=== PATIENT | male | born 1945 | race Caucasian/White ===

== ENCOUNTER 2017-04-07 09:56 | Observation (INO) | payer OTHER ==
--- NOTE | 2017-04-06 17:41 | GHP ---
[f rep st] PREOP HISTORY AND PHYSICAL ADMISSION DIAGNOSIS: BPH with urinary obstruction. HISTORY OF PRESENT ILLNESS: By history, this is a 71-year-old gentleman who has had urinary obstruct ion. He is admitted for a TURP. He says that he stands sometimes for 30 seconds before could start voiding and he has tried medications without help. He has had a previous photovaporization of the pr ostate and voided well until the past few weeks. He tried a course of VESIcare without resolving of symptoms. He had a transrectal ultrasound of the prostate that showed about a 51.7 g prostate with some calculi in the parenchyma of the prostate. He had a urodynamic study on 03/21/2017 that showed he had a hig h pressure voiding with normal EMG and low flow rate. That showed that he was obstructed. He had a peak flow of 9.8 mL/sec, average flow 4.5 mL/sec. He voided 198 mL with a postvoid residual of 17. He had a cystoscopy and the cystoscopy showed he had residual adenoma. He has had an idiopathic detr usor overactivity, bladder outlet obstruction, small capacity bladder, high detrusor voiding pressure s. At the present time, he is admitted for a TURP. Options discussed. Indications, complications discu ssed. Written and verbal consent were obtained. PAST MEDICAL HISTORY: He has had essential tremor, hypercholesterolemia, elevated PSAs past surgery, appendectomy, photovaporization of the prostate. TRUS with biopsy was benign. MEDICATIONS: Carbidopa/Levopa, Flomax, Lamictal, Lipitor, Seroquel. ALLERGIES: None. SOCIAL HISTORY: Former smoker. Nondrinker. and immunizations up to date. REVIEW OF SYSTEMS: Negative cardiac, respiratory, GI, and endocrine. PHYSICAL EXAMINATION: VITAL SIGNS: Stable. CHEST: Clear. HEART: Regular rate and rhythm. ABDOM EN: No organomegaly, rebound, or guarding. EXTREMITIES: Lower extremities are normal. At the present time, he is admitted for the TURP. Copy requested to: Dr. José Atkins /[id number]/MODL
--- NOTE | 2017-04-07 08:39 | PDHPUP ---
History & Physical Update H&P update statement: This history and physical update is based on an assessment of the patient which was completed after admission or registration (within 24 hours), but prior to the surgery/procedure. H&P update: H&P reviewed & patient examined, no change in patient's condition since H&P completed
[~2017-04-07 09:56] MED LIST: ceFAZolin 2 GM/SWFI 2 GM/20 ML SYR IVP ONE
[2017-04-07] MEDS ORDERED: LR 1,000 ML IV ONE (10:14)
[2017-04-07] MEDS ORDERED: LIDOCAINE 1% 2 ML INJ ID PRN (10:14)
[2017-04-07] MEDS ORDERED: LIDOCAINE 2% JELLY 20 ML (UROJECT) ONE (10:43)
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
[2017-04-07] MEDS ORDERED: MIDAZOLAM 2 MG/2 ML VIAL ONE (10:55)
[2017-04-07] MEDS ORDERED: PROPOFOL 200 MG/20 ML VIAL ONE (10:56)
[2017-04-07] MEDS ORDERED: fentaNYL 100 MCG/2 ML INJ ONE ×3 (10:56→15:08)
[2017-04-07] MEDS ORDERED: ONDANSETRON 4 MG/2 ML VIAL ONE (10:58)
[2017-04-07] MEDS ORDERED: METOCLOPRAMIDE 10 MG/2 ML VIAL ONE (10:58)
[2017-04-07] MEDS ORDERED: PHENYLEPHRINE HCL 100 MCG/ML SYR ONE (11:53)
[2017-04-07] MEDS ORDERED: OXYCODONE/APAP 5/325 TAB PO PRN (12:10)
[2017-04-07] MEDS ORDERED: ACETAMINOPHEN 325 MG TAB PO PRN (12:10)
[2017-04-07] MEDS ORDERED: ZOLPIDEM TARTRATE 5 MG TAB PO PRN (12:10)
[2017-04-07] MEDS ORDERED: ONDANSETRON 4 MG/2 ML VIAL IVP PRN ×2 (12:10→12:11)
[2017-04-07] MEDS ORDERED: OPIUM/BELLADONNA ALKALO SUPP PR PRN (12:10)
[2017-04-07] MEDS ORDERED: ONDANSETRON DISINTEGRATING 4 MG TAB PO PRN (12:10)
[2017-04-07] MEDS ORDERED: NALOXONE HCL 0.4 MG/ML INJ IVP PRN (12:11)
[2017-04-07] MEDS ORDERED: PROMETHAZINE HCL 25 MG/ML INJ IVP PRN (12:11)
[2017-04-07] MEDS ORDERED: LR 500 ML IV PRN (12:11)
--- NOTE | 2017-04-07 12:12 | POSTANESTH ---
Post Anesthetic Evaluation Cardiovascular Status: Normal, Stable Respiratory Status: Normal, Stable Level of Consciousness/Mental Status: Can Participate in Eval Pain Control: Adequate, Prn Tx Ordered Nausea/Vomiting Control: Adequate, Prn Tx Ordered Complications Possibly Related to Anesthesia: None Noted
--- NOTE | 2017-04-07 12:14 | GOP ---
[f rep st] OPERATIVE REPORT DATE OF OPERATION: 04/07/2017 SURGEON: Pablo Sanchez MD PREOPERATIVE DIAGNOSIS: Benign prostatic hypertrophy, urinary obstruction. POSTOPERATIVE DIAGNOSIS: Benign prostatic hypertrophy, urinary obstruction. PROCEDURE PERFORMED: Transurethral resection of the prostate. FINDINGS: DESCRIPTION OF PROCEDURE: This gentleman underwent general anesthesia, prepped and draped in the nor mal sterile fashion in dorsal lithotomy position. After an appropriate time-out, a scope was passed u nder direct vision into the bladder. He had regrowth of nodular prostatic hypertrophy and TUR of the prostate was started by taking down the right lateral lobe, the right portion of the posterior lobe. Hemostasis via cauterization. Left lateral lobe and left portion of the posterior lobe resected. Bl adder was Ellik'd free of all chips and clots. Visualization revealed no residual chips or clots. U reteral orifices preserved. External sphincter approximated at the midline symmetrically. [place] num was clear and Uro-jet placed into urethra. A 22 three-way catheter was passed over a Mandarin gu stacey. 60 cc balloon inflated. No traction placed and he will be admitted for postoperative care. Kalen blake sent to Pathology. Estimated blood loss, minimal. Complications, none. Dr. Stovall provided neral anesthesia. /[id number]/MODL
--- NOTE | 2017-04-07 12:15 | POSTOPPROG ---
Post Op Note Date of Operation: 04/07/17 Surgeon: Pablo Sanchez Anesthesia: LMA Pre-op Diagnosis: bph Procedure: turp Inf/Abcess present in the surg proc area at time of surgery?: No EBL: Minimal Drains: Other (bagley) Specimen(s): stent, dictated
[2017-04-07] MEDS ORDERED: POTASSIUM Cl (KCl) 10 MEQ in D5W 1/2 NS 1,000 ML IV SCH (12:30)
[2017-04-07] MEDS: fentaNYL 100 MCG/2 ML INJ IVP PRN ×3 (12:59→15:11)
[2017-04-07] MEDS ORDERED: PHENAZOPYRIDINE HCL 200 MG TAB PO ONE (13:00)
[2017-04-07] MEDS ORDERED: OPIUM/BELLADONNA ALKALO SUPP PR ONE (13:04)
[2017-04-07] MEDS: HYDROCODONE/APAP 5/325 TAB PO PRN ×2 (16:28→20:36)
--- NOTE | 2017-04-08 07:57 | SOAPPROG ---
SOAP Progress Note Assessment/Plan: Assessment: BPH loc w urin obs/LUTS Acute POD # 1, dc bagley and plan dc home Plan: dc home if pt voids and follow up in 3 weeks 04/08/17 07:56 Subjective: no complaints Objective: Vital Signs Temp Pulse Resp BP Pulse Ox 36.8 C 59 L 16 140/80 H 93 04/08/17 04:23 04/08/17 04:23 04/08/17 04:23 04/08/17 04:23 04/08/17 04:23 Laboratory Results 04/07/17 10:30 04/07/17 04/08/17 04/09/17 05:59 05:59 05:59 Intake Total 2550 Output Total 6191 0850 Balance -3733 -1550 Physical Exam - Physical Exam General Appearance: WD/WN Neck: supple Respiratory: No respiratory distress Cardiac/Chest: regular rate, rhythm Abdomen: soft Back: No CVA tenderness Extremities: No calf tenderness Neuro/Psych: alert, oriented x 3 ICD10 Worksheet Patient Problems: Problems Problem Status Onset BPH loc w urin obs/LUTS Acute - ICD10 Problem Qualifiers (1) BPH loc w urin obs/LUTS
--- NOTE | 2017-04-08 08:13 | GDS ---
[f rep st] DISCHARGE SUMMARY ADMISSION DIAGNOSIS: Benign prostatic hypertrophy, with urinary obstruction. DISCHARGE DIAGNOSIS: Benign prostatic hypertrophy, with urinary obstruction. Pathology pending. HOSPITAL COURSE: This gentleman on the day of admission had the above procedure performed. He was d ischarged home on postop day 1. He will have followup with me in 3 weeks. COMPLICATIONS DURING HOSPITALIZATION: None. /[id number]/MODL
[2017-04-08] MEDS ORDERED: lamoTRIgine 100 MG TAB PO SCH ×2 (09:00→17:00)
[2017-04-08] MEDS ORDERED: CYANO/VITAMIN B12 100 MCG TAB PO SCH (09:00)
[2017-04-08] MEDS ORDERED: PROPRANOLOL HCL 120 MG PO SCH (09:00)
[2017-04-08] MEDS ORDERED: HYDROCHLOROTHIAZIDE 12.5 MG CAP PO SCH ×2 (09:00→17:00)
[2017-04-08] MEDS ORDERED: CYANOCOBALAMIN 100 MCG PO SCH (09:00)
[2017-04-08] MEDS ORDERED: PROPRANOLOL HCL 40 MG TAB PO SCH (09:00)
[2017-04-08] MEDS ORDERED: LAMOTRIGINE 200 MG PO SCH (09:00)
[2017-04-08] MEDS: CARBIDOPA/LEVODOPA 25 MG/100 MG TAB PO SCH ×2 (09:03→13:07)
[2017-04-08 10:26] VITALS: BP 136/82; PULSE 68; RESP 18; TEMP 98; O2SAT 91
[2017-04-08] MEDS ORDERED: LAMOTRIGINE 100 MG PO SCH (17:00)
[2017-04-08] MEDS ORDERED: ATORVASTATIN CALCIUM 20 MG TAB PO SCH (17:00)
[2017-04-08] MEDS ORDERED: NON-FORMULARY NEW DRUG (Atorvastatin Calcium [Lipitor 20 Mg (*)] 20 MG) PO SCH (17:00)
[2017-04-08] MEDS ORDERED: DIOVAN HCT PO SCH (17:00)
[2017-04-08] MEDS ORDERED: VALSARTAN 160 MG TAB PO SCH (17:00)
[2017-04-08] MEDS ORDERED: QUEtiapine FUMARATE 25 MG TAB PO SCH (21:00)
[2017-04-08] MEDS ORDERED: QUETIAPINE FUMARATE 25 MG PO SCH (21:00)
== END 2017-04-08 13:23 | disposition home or self-care (01) ==
LOC: F1N 09:56
PROVIDERS: ADMIT Specialist; ATTEND Specialist
PROC: 0VB08ZZ Excision of Prostate, Via Natural or Artificial Opening Endoscopic (ICD-10-PCS; principal; 2017-04-07 11:30)
DX: C61 Malignant neoplasm of prostate (principal); N40.1 Benign prostatic hyperplasia with lower urinary tract symptoms; N13.8 Other obstructive and reflux uropathy; R33.9 Retention of urine, unspecified; R39.11 Hesitancy of micturition; R39.15 Urgency of urination; I10 Essential (primary) hypertension; E78.5 Hyperlipidemia, unspecified; Z87.891 Personal history of nicotine dependence
CPT/HCPCS: 52601; J0690; J2250; J2370; J2405; J2704; J2765; J3010